=== PATIENT | male | born 1940 | race Caucasian/White ===

== ENCOUNTER 2025-01-02 17:38 | Emergency (ER) | payer MEDICARE, BC, SELFPAY ==
[2025-01-02 17:40] VITALS: BP 163/94
[2025-01-02 17:43] LABS: Glucose - Point of Care 141 mg/dl (70-99)
[2025-01-02 17:58] VITALS: BMI 32.0
[2025-01-02 18:07] VITALS: BP 145/79
[2025-01-02 18:31] LABS: Hematocrit 39.2 % (39.0-52.0); Hemoglobin 13.0 g/dL (13.0-18.0); Mean Corp Hgb Conc. 33.2 g/dL (33.0-37.0); Mean Corpuscular Volume 96.8 fL (80.0-94.0); Nucleated Red Blood Cells % 0 % (-); Platelet Count 184 10^3/uL (130-400); Red Cell Dist. Width 13.3 % (11.5-14.5)
--- NOTE | 2025-01-02 18:38 | ED.GENMED ---
History of Present Illness
<Kenneth Ortiz MD, Resident - Last Filed: 01/02/25 20:22>
General
Chief Complaint: Dizziness
Source: patient
Time Seen by Provider: 01/02/25 18:12
History of Present Illness
History of Present Illness:
Patient is an 84-year-old male with PMH of diabetes, HTN, HLD, and NJ who presents to the [facility] ED for 'dizziness'. Patient was out shopping around 4 PM when he experienced sudden onset unsteadiness that he describes as 'feeling like I'm
drunk'. Denies lightheadedness, sensation of spinning, palpitations, chest pain, or shortness of breath. The unsteadiness was associated with diaphoresis and blurred vision. Shortly after the episode started, the patient left the store and sat in
his car. While sitting, the patient's symptoms improved and he was able to drive home. The entire episode lasted approximately 20-30 minutes. Approximately 1 hour after onset of symptoms, patient developed a headache that initially mild but
progressed to 7/10 intensity. At the bedside, patient's headache is mild. No other current symptoms. Patient never had a prior episode like this. No history of stroke.
Past History
<Kenneth Ortiz MD, Resident - Last Filed: 01/02/25 20:22>
Past History
ED Past Medical History: CAD, HTN, Hypercholesterolemia and NJ
Social History
Tobacco: Former smoker
Alcohol: None
Drug: None
Review of Systems
<Kenneth Ortiz MD, Resident - Last Filed: 01/02/25 20:22>
Review of Systems
Constitutional: Denies fever, fatigue or chills
Respiratory: Denies trouble breathing
Cardiac: Reports diaphoresis; Denies chest pain or palpitations
ABD/GI: Denies abdominal pain, nausea, vomiting or diarrhea
: Reports no symptoms
Neurological: Reports dizzy and headache; Denies weakness or numbness
Phy Exam
<Kenneth Ortiz MD, Resident - Last Filed: 01/02/25 20:22>
Physical Exam
Physical Exam:
General: NAD. Conversant.
Neuro: A&O x 3. Sensory, motor intact. CN II through XII intact. No dysmetria. No dysdiadochokinesia. No drift on leg and arm raise. EOMI. Visual reddy intact.
Course
<Kenneth Ortiz MD, Resident - Last Filed: 01/02/25 20:22>
Orders/Labs/Results
Orders:
Orders
01/02/25 17:47
EKG [Electrocardiogram (*1)] Urgent
Reason for Study: Tachycardia
EKG- Treatment ONCE
01/02/25 18:25
CMP [Comprehensive Metabolic Panel] Urgent
Complete Blood Count/With Diff Urgent
Troponin I Urgent
01/02/25 18:52
CT Head & Neck Angio W/wo IV Urgent
Comment:
Reason For Exam: Dizziness
01/02/25 19:00
Acetaminophen [Tylenol] 650 mg PO NOW STA
Abnormal Lab Results
01/02/25 01/02/25
17:42 18:25
RBC 4.05 L 10^6/uL
(4.70-6.10)
MCV 96.8 H fL
(80.0-94.0)
MCH 32.1 H pg
(27.0-31.0)
Neutrophils % 40.8 L %
(42.2-75.2)
Monocytes % 10.8 H %
(1.7-9.3)
BUN 28 H mg/dl
(9-20)
Glucose 133 H mg/dl
(70-99)
Alkaline Phosphatase 32 L U/L
(38-126)
POC Glucose 141 H mg/dl
(70-99)
01/02/25 18:25
01/02/25 18:25
Vital Signs
Initial and Last Documented VS:
Initial Vital Signs
Temp Pulse Resp BP Pulse Ox
97.5 F 81 18 163/94 96
01/02/25 17:40 01/02/25 17:40 01/02/25 17:40 01/02/25 17:40 01/02/25 17:40
Last Documented Vital Signs
Temp Pulse Resp BP Pulse Ox
97.5 F 81 18 145/79 98
01/02/25 17:40 01/02/25 17:40 01/02/25 17:40 01/02/25 18:07 01/02/25 18:52
Jackylt;Matias Joshi DO - Last Filed: 01/02/25 18:55>
Orders/Labs/Results
Orders:
Orders
01/02/25 17:47
EKG [Electrocardiogram (*1)] Urgent
Reason for Study: Tachycardia
EKG- Treatment ONCE
01/02/25 18:25
CMP [Comprehensive Metabolic Panel] Urgent
Complete Blood Count/With Diff Urgent
Troponin I Urgent
01/02/25 18:52
CT Head & Neck Angio W/wo IV Urgent
Comment:
Reason For Exam: Dizziness
01/02/25 19:00
Acetaminophen [Tylenol] 650 mg PO NOW STA
Abnormal Lab Results
01/02/25 01/02/25
17:42 18:25
RBC 4.05 L 10^6/uL
(4.70-6.10)
MCV 96.8 H fL
(80.0-94.0)
MCH 32.1 H pg
(27.0-31.0)
Neutrophils % 40.8 L %
(42.2-75.2)
Monocytes % 10.8 H %
(1.7-9.3)
BUN 28 H mg/dl
(9-20)
Glucose 133 H mg/dl
(70-99)
Alkaline Phosphatase 32 L U/L
(38-126)
POC Glucose 141 H mg/dl
(70-99)
01/02/25 18:25
01/02/25 18:25
Vital Signs
Initial and Last Documented VS:
Initial Vital Signs
Temp Pulse Resp BP Pulse Ox
97.5 F 81 18 163/94 96
01/02/25 17:40 01/02/25 17:40 01/02/25 17:40 01/02/25 17:40 01/02/25 17:40
Last Documented Vital Signs
Temp Pulse Resp BP Pulse Ox
97.5 F 81 18 145/79 98
01/02/25 17:40 01/02/25 17:40 01/02/25 17:40 01/02/25 18:07 01/02/25 18:52
<Kenneth Ortiz MD, Resident - Last Filed: 01/02/25 20:22>
MDM/Problems Addressed
Differential Diagnosis Includes:
Benign paroxysmal positional vertigo
Orthostatic hypotension
Stroke/TIA
Arrhythmia
MDM/Problems Addressed:
Assessment: Patient is an 84-year-old male with PMH of diabetes, HTN, HLD, and NJ who presents to the [facility] ED following a transient [id number] episode of unsteadiness that was associated with diaphoresis, blurred vision, and subsequent
headache. Neurologic exam, CBC, CMP, EKG unremarkable. Troponin 0.014. CTA head and neck shows no acute intracranial pathology, no M1 or M2 occlusion, intact posterior circulation, and no carotid dissection. Patient was altered in the ED floor
and experienced no symptoms. Suspect BPPV. Patient amenable to discharge.
Plan:
#Dizziness
EKG
Labs: CBC, CMP, troponin
Imaging: CTA head and neck
Acetaminophen for headache
<Kenneth Ortiz MD, Resident - Last Filed: 01/02/25 20:22>
*Pulse Oximetry
SaO2: 98
Oxygen Mode of Delivery: Room air
Patient hypoxic: no
*Critical Care Note
Total Time (30-74mins, 75-104mins- exclusive of procedures): Not Applicable
ED Attending Note
<Kenneth Ortiz MD, Resident - Last Filed: 01/02/25 20:22>
-
Portions of this chart may have been created with voice recognition software.� Occasional wrong word or��sound alike� substitutions may have occurred due to the inherent limitations of voice recognition software.
<Matias Joshi, DO - Last Filed: 01/02/25 18:55>
ED Attending Note
Patient seen and examined by attending physician: Yes
I performed a history and physical exam of patient and discussed management with resident, I reviewed resident's note and agree with documented findings and plan of care.: Yes
ED Attending Note:
I agree with Dr. Vazquez's note
84-year-old male presents to the emergency room for evaluation after having an episode of feeling off balance, ataxia. Symptoms started when he was trying on close calls. No focal weakness numbness or tingling. He denies any nausea or vomiting.
No recent change in medications. He developed a headache after the symptoms had started to resolve. He rates his headache is mild right now.
General: Awake, Alert, Oriented X3. No acute distress.
Vitals: unremarkable
Head: Atraumatic
Eyes: Pupils equal, EOMI
Throat: Airway intact, no exudates
Neck: Trachea midline
Lungs: Clear and equal b/l
Heart: Regular rate, 2/6 murmurs
Abd: Soft, Nontender, No pulsatile mass
Neuro: Cranial nerves intact, muscle strength equal bilaterally, cerebellar exam normal
Skin: Warm, dry, no rash
Extremities: pulses equal b/l, no edema
EKG: Atrial paced, nonspecific intraventricular conduction delay, no acute ischemic changes
Discharge Plan
Departure
Patient Disposition: Home (Routine Discharge)
Date of Disposition: 01/02/25
Time of Disposition: 20:18
Patient with high blood pressure during this ER visit?: Yes
Condition: Good
Covid-19: Not Applicable
Discharge Problem:
Dizziness
Instructions: Dizziness, BLOOD PRESSURE
Activity Restrictions/Additional Instructions:
Follow-up with your primary care physician in the outpatient setting
Return to ED if you develop balance problems, weakness, numbness, vision loss, slurred speech, or any other symptoms worrisome to you
Interventions
Interventions:
*Risk Screen - Suicide Last Done: 01/02/25 17:40
*General Assessment Last Done: 01/02/25 17:40
*Neglect/Abuse Screening Last Done: 01/02/25 17:40
*ED- Fall Risk Assessment Last Done: 01/02/25 17:40
*ED COVID-19 Vaccine History Last Done: 01/02/25 17:40
*ED Influenza Vaccine History Last Done: 01/02/25 17:40
ED- Neurological Assessment Last Done: 01/02/25 17:58
Discharge Date and Time
Print Language: UKRAINIAN
[2025-01-02 18:52] LABS: ALT (SGPT) 15 U/L (0-50); AST (SGOT) 31 U/L (17-59); Albumin 4.5 g/dl (3.5-5.0); Alkaline Phosphatase 32 U/L (38-126); Blood Urea Nitrogen 28 mg/dl (9-20); Calcium 10.0 mg/dl (8.4-10.2); Carbon Dioxide 28 mmol/L (22-30); Chloride 102 mmol/L (98-107); Estimated Creatinine Clearance 69 ml/min; Glucose 133 mg/dl (70-99); Potassium 4.3 mmol/L (3.5-5.1); Sodium 137 mmol/L (135-145); Total Protein 6.7 g/dl (6.3-8.2); eGFR > 60.00
[2025-01-02 19:00] VITALS: BP 142/81
--- NOTE | 2025-01-02 19:00 | EDRN ---
Report received, introduced myself to patient and family member, aware waiting on CT
[2025-01-02 19:03] LABS: Troponin I 0.014 ng/ml
[2025-01-02] MEDS: TYLENOL 650 MG PO (19:49)
[2025-01-02 20:00] VITALS: BP 135/73
--- NOTE | 2025-01-02 20:00 | EDRN ---
Updated patient and family member on labs, patient ambulated without difficulty, resident in with patient as well
== END 2025-01-02 20:49 | disposition home or self-care (01) ==
LOC: EMR 17:38
PROVIDERS: EMERGENCY PHYSICIAN Emergency Medicine
DX: R42 Dizziness and giddiness (principal); E11.9 Type 2 diabetes mellitus without complications; I25.10 Atherosclerotic heart disease of native coronary artery without angina pectoris; I10 Essential (primary) hypertension; E78.00 Pure hypercholesterolemia, unspecified; I25.2 Old myocardial infarction; Z87.891 Personal history of nicotine dependence
CPT/HCPCS: 99284; 70496; 70498; 80053; 82962; 84484; 85025; 93005; Q9967